=== PATIENT | female | born 1965 | race Caucasian/White ===

== ENCOUNTER 2019-02-07 20:22 | Emergency (ER) | payer MEDICARE, BC ==
[2019-02-07] MEDS ORDERED: MORPHINE SULFATE 10 MG/ML INJ IV ONE (21:16)
[2019-02-07] MEDS ORDERED: ONDANSETRON HCL INJ/PF 4 MG/2 ML SDV IV ONE (21:16)
[2019-02-07] MEDS ORDERED: NORMAL SALINE 1000 ML 1,000 ML IV ONE (21:16)
--- NOTE | 2019-02-07 21:20 | ER Document Report ---
ED General - General Chief Complaint: Abdominal Pain Stated Complaint: ABDOMINAL PAIN Time Seen by Provider: 02/07/19 21:15 Notes: Patient is a 53-year-old female who presents emergency department with a chief complaint of abdominal pain. Her pain started about a day and half ago and she states that is all over and it is in her ribs and also in her back. She does feel nauseated. She has not vomited. She states that about a month and a half ago she had an IUD placed. She has not had any problems with the IUD. She does state that she has had some spotting from her vagina, but denies any actual bleeding. TRAVEL OUTSIDE OF THE [place] IN LAST 30 DAYS: No - Related Data Allergies/Adverse Reactions: No Known Allergies Allergy (Verified 02/07/19 20:24) Past Medical History - Social History Smoking Status: Current Every Day Smoker Frequency of alcohol use: Social Drug Abuse: None Family History: Reviewed & Not Pertinent Patient has suicidal ideation: No Patient has homicidal ideation: No Pulmonary Medical History: Reports: Hx Asthma Renal/ Medical History: Denies: Hx Peritoneal Dialysis Past Surgical History: Reports: Hx Gynecologic Surgery - D&C, Hx Orthopedic Surgery - back/neck Review of Systems - Review of Systems Notes: REVIEW OF SYSTEMS: CONSTITUTIONAL : Denies recent illness. Denies recent unintentional weight loss. Denies fever, chills, or sweats. EENT: Denies eye, ear, throat, or mouth pain, discharge, or symptoms. Denies nasal or sinus congestion. CARDIOVASCULAR: See HPI RESPIRATORY: Denies shortness of breath, cough, congestion, difficulty breathing, or wheezing. GASTROINTESTINAL: See HPI GENITOURINARY: Denies difficulty urinating, burning, blood in urine, urgency or frequency. MUSCULOSKELETAL: Denies neck and back pain. Denies joint pain or swelling. SKIN: Denies rash, itchiness, or lesions HEMATOLOGIC : Denies easy bruising or bleeding. LYMPHATIC: Denies swollen, painful, enlarged glands. NEUROLOGICAL: Denies no numbness or tingling denies weakness. Denies headache. Denies altered mental status. Denies alteration in speech. PSYCHIATRIC: Denies stress, anxiety, alteration in sleep patterns, or depression. All other systems reviewed and negative. Physical Exam - Vital signs Vitals: Pulse Ox 98 02/07/19 20:51 - Notes Notes: PHYSICAL EXAMINATION: GENERAL: Appears well, healthy, well-nourished, no acute distress. HEAD: Normocephalic, atraumatic. EYES: PERRL, conjunctiva normal, all extraocular movements intact, sclera nonicteric ENT: Moist mucous membranes. NECK: Supple, no noticeable swelling, redness, rash. Normal range of motion. LUNGS: Equal breath sounds bilaterally and clear to auscultation. No wheezes rales or rhonchi. CARDIOVASCULAR: S1-S2, regular rate, regular rhythm. Radial pulses 2+, normal. ABDOMEN: Normoactive bowel sounds. Soft, generalized tenderness, no guarding, no rebound tenderness, and no masses palpated. EXTREMITIES: Normal strength and range of motion, no pitting or edema. No cyanosis. NEUROLOGICAL: Moves all extremities upon command. Strength 5/5 in all extremities. PSYCH: Normal mood, normal affect. SKIN: Warm, dry. No rash, lesions, ulcerations noted. Normal skin turgor. Course - Re-evaluation Re-evalutation: 02/07/19 22:[address] of the abdomen and pelvis show that she has an abundant amount of s tool in her colon. She also has uterine fibroids, which she has always had. I do not suspect her pain is due to her fibroids, but her constipation. She is opted to have an enema to help her have a large bowel movement. Her urinalysis shows blood in it, but there was no stone noted on the CT of her abdomen. Her troponins are negative. Lipase are negative. Is normal. Chemistries and hematology are both unremarkable. 02/08/19 01:18 Patient did not have a bowel movement with small xavier of stool. She also did vomit at that time, but I suspect this is due to her straining to have a bowel movement. I told her that she needs to cut back on her narcotic pain medication, because this causing her to become constipated. At this time. She is stable for discharge. I will give her 1 more dose of Zofran and she will go home with Zofran Dosepak. Follow-up with her primary care provider as needed. She is in agreement with this plan. Verbal discharge instructions were given to the patient. They verbalized understanding. They are stable for discharge. - Vital Signs Vital signs: Temp Pulse Resp BP Pulse Ox 98.0 F 73 20 126/81 H 96 02/08/19 01:18 02/08/19 01:18 02/08/19 01:18 02/08/19 01:18 02/08/19 01:18 - Laboratory Result Diagrams: 02/07/19 21:03 02/07/19 21:03 Laboratory results interpreted by me: 02/07/19 02/07/19 02/07/19 21:03 21:03 21:37 Seg Neutrophils % 83.5 H Lymphocytes % 12.2 L Glucose 119 H Urine Blood MODERATE H - EKG Interpretation by Me Additional EKG results interpreted by me: 02/07/19 22:29 Sinus rhythm. Rate 84. SD 188; QRS 80; QT 344; QTc 407. No ST elevations or depressions noted. Discharge - Discharge Clinical Impression: Constipation Qualifiers: Constipation type: drug induced constipation Qualified Code(s): K59.03 - Drug induced constipation Abdominal pain Qualifiers: Abdominal location: generalized Qualified Code(s): R10.84 - Generalized abdominal pain Condition: Stable Disposition: HOME, SELF-CARE Instructions: Abdominal Pain ([facility]), Antinausea Medication ([facility]) Additional Instructions: You were seen today in the emergency department for abdominal pain. Your abdominal pain is due to constipation. Please cut back on the amount of narcotic pain medication you use, because this can make you more constipated. Please take your Colace as directed. You can follow-up with your primary care provider as needed. You have been given Zofran, medication for nausea. You can take 1 to 2 tablets every 4-6 hours as needed. Foods to avoid: Bananas, rice, applesauce, and toast. Foods to eat: High-fiber foods, brand cereal, salad, high-fiber fruit.
[2019-02-07 21:28] LABS: ABSOLUTE LYMPHOCYTES (AUTO) 0.9 10^3/uL (0.5-4.7); ABSOLUTE MONOCYTES (AUTO) 0.3 10^3/uL (0.1-1.4); ABSOLUTE NEUT (AUTO) 6.1 10^3/uL (1.7-8.2); BASOPHILS % (AUTO) 0.5 % (0-2); EOSINOPHILS % (AUTO) 0.2 % (0-6); HEMATOCRIT 40.1 % (36.0-47.0); HEMOGLOBIN 14.1 g/dL (12.0-15.5); LYMPHOCYTES % (AUTO) 12.2 % (13-45); MEAN CORPUSCULAR HEMOGLOBIN 32.5 pg (27.0-33.4); MEAN CORPUSCULAR HGB CONC 35.1 g/dL (32.0-36.0); MEAN CORPUSCULAR VOLUME 93 fl (80-97); MONOCYTES % (AUTO) 3.6 % (3-13); PLATELET COUNT 223 10^3/uL (150-450); RED BLOOD COUNT 4.34 10^6/uL (3.72-5.28); RED CELL DISTRIBUTION WIDTH 12.7 % (11.5-14.0); SEGMENTED NEUTROPHILS % (AUTO) 83.5 % (42-78); TOTAL CELLS COUNTED % (AUTO) 100 %; WHITE BLOOD COUNT 7.3 10^3/uL (4.0-10.5)
[2019-02-07 21:48] LABS: ALANINE AMINOTRANSFERASE 21 U/L (9-52); ALBUMIN 4.2 g/dL (3.5-5.0); ALKALINE PHOSPHATASE 87 U/L (38-126); ANION GAP 10 (5-19); ASPARTATE AMINO TRANSFERASE 17 U/L (14-36); BILIRUBIN,DIRECT 0.2 mg/dL (0.0-0.4); BILIRUBIN,TOTAL 0.2 mg/dL (0.2-1.3); BLOOD UREA NITROGEN 12 mg/dL (7-20); CALCIUM 9.5 mg/dL (8.4-10.2); CARBON DIOXIDE 25 mmol/L (22-30); CHLORIDE 103 mmol/L (98-107); CREATINE KINASE 49 U/L (30-135); GLUCOSE 119 mg/dL (75-110); POTASSIUM 4.1 mmol/L (3.6-5.0); SODIUM 138.4 mmol/L (137-145); TOTAL PROTEIN 6.7 g/dL (6.3-8.2)
[2019-02-07 22:06] LABS: CREATINE KINASE MB 0.24 ng/mL (<4.55)
[2019-02-07 22:07] LABS: TROPONIN I < 0.012 ng/mL
[2019-02-07 22:15] LABS: APPEARANCE,URINE CLEAR; BILIRUBIN,URINE NEGATIVE (NEGATIVE); COLOR,URINE STRAW; GLUCOSE, URINE NEGATIVE (NEGATIVE); KETONES,URINE NEGATIVE (NEGATIVE); LEUKOCYTE ESTERASE,URINE NEGATIVE (NEGATIVE); NITRITE,URINE NEGATIVE (NEGATIVE); PROTEIN,URINE NEGATIVE (NEGATIVE); URINE SPECIFIC GRAVITY 1.006; UROBILINOGEN,URINE NEGATIVE mg/dL (<2.0)
[2019-02-07] MEDS ORDERED: FENTANYL CITRATE INJ/PF 100 MCG/2 ML AMPUL IV ONE (23:01)
--- NOTE | 2019-02-07 23:15 | RADIOLOGY REPORT (SQ) ---
EXAM DESCRIPTION: CT ABDOMEN PELVIS WITH IV CONTRAST COMPLETED DATE/TME: 02/07/2019 22:24 CLINICAL HISTORY: 53 years, Female, abdominal pain COMPARISON: None. TECHNIQUE: 430 Images stored on PACS. All CT scanners at this facility use dose modulation, iterative reconstruction, and/or weight based dosing when appropriate to reduce radiation dose to as low as reasonably achievable (ALARA). [facility]: Dose Right [facility]: CareDose [facility]: Dose Right [facility]: Teradose 4D [facility]: [employer] LIMITATIONS: None. FINDINGS: Limited evaluation of the lung bases is unremarkable. Osseous structures are grossly intact. Bilateral breast implants are noted. The liver, spleen, adrenal glands, pancreas, kidneys are unremarkable. The gallbladder is present. Post surgical changes of the lumbar spine. Normal appendix. Abundant stool in the colon. IUD in place. Calcified and noncalcified uterine fibroids. IMPRESSION: Abundant stool in the colon. Uterine fibroids. TECHNICAL DOCUMENTATION: Quality ID # [id number]: Final reports with documentation of one or more dose reduction techniques (e.g., Automated exposure control, adjustment of the mA and/or kV according to patient size, use of iterative reconstruction technique) copyright 2010 [employer]- All Rights Reserved
--- NOTE | 2019-02-07 23:32 | EKG REPORT ---
SEVERITY:- BORDERLINE ECG - SINUS RHYTHM PROBABLE LEFT ATRIAL ABNORMALITY CONSIDER ANTERIOR INFARCT : Confirmed by: Oswald Ramos MD 07-Feb-2019 23:31:02
[2019-02-08] MEDS ORDERED: ONDANSETRON HCL INJ/PF 4 MG/2 ML SDV IV ONE (01:17)
[2019-02-08] MEDS ORDERED: ONDANSETRON ODT 4 MG TAB (6 TAB/ER DISP) PO PRN (01:17)
[2019-02-08 01:34] VITALS: BP 126/81
== END 2019-02-08 01:33 | disposition home or self-care (01) ==
LOC: ER 20:22
DX: K59.03 Drug induced constipation (principal); T40.605A Adverse effect of unspecified narcotics, initial encounter; D25.9 Leiomyoma of uterus, unspecified; M54.9 Dorsalgia, unspecified; R10.84 Generalized abdominal pain; R11.2 Nausea with vomiting, unspecified; R07.81 Pleurodynia; R31.9 Hematuria, unspecified; J45.909 Unspecified asthma, uncomplicated; F17.200 Nicotine dependence, unspecified, uncomplicated; Z97.5 Presence of (intrauterine) contraceptive device
CPT/HCPCS: 93005; 96376; 99284; 96361; 96374; 96375; 36415; 82553; 82550; 83690; 85025; 81025; 80053; 81001; 84484; 74177; 93010; J3010; J2270; J2405 ×2; J7030; A9270